=== PATIENT | female | born 1950 | race African-American/Black ===

== ENCOUNTER 2018-12-08 20:57 | Emergency (ER) | payer OTHER ==
[~2018-12-08] VITALS: Ht 175.3 cm; Wt 112.0 kg
[2018-12-08] MEDS ORDERED: PROAIR RESPICL90 MCG INH (21:05)
[2018-12-08 22:19] LABS: HEMATOCRIT 36.2 % (37.0-47.0); HEMOGLOBIN 11.4 gm/dL (12.0-15.0); MCH 24.6 pg (26.0-34.0); MCHC 31.4 g/dL (28.0-37.0); MCV 78.3 fL (80.0-100.0); PLATELET COUNT 327 thou/uL (150-400); RBC 4.62 mil/uL (4.20-5.00); RDW 19.7 % (10.5-14.5)
[2018-12-08 22:27] LABS: ANION GAP 9 mmol/L (7-16); BUN 10 mg/dL (7-18); CHLORIDE 106 mmol/L (98-107); CO2 27 mmol/L (21-32); CREATININE 1.1 mg/dL (0.6-1.0); GLUCOSE 143 mg/dL (74-106); POTASSIUM 4.5 mmol/L (3.5-5.1); SODIUM 142 mmol/L (136-145)
[2018-12-08] MEDS ORDERED: VENLAFAXINE HCL75 MG PO (22:34)
[2018-12-08] MEDS ORDERED: AMLODIPINE BESY10 MG PO (22:35)
[2018-12-08] MEDS ORDERED: ELIQUIS5 MG PO (22:35)
[2018-12-08] MEDS ORDERED: METFORMIN HCL500 MG PO (22:36)
[2018-12-08] MEDS ORDERED: JARDIANCE10 MG PO (22:36)
[2018-12-08] MEDS ORDERED: UNICOMPLEX M TA1 TA1 PO (22:36)
[2018-12-08] MEDS ORDERED: NORCO 5-325 TA1 EAC1 PO (22:36)
[2018-12-08 22:37] LABS: TROPONIN-I <0.06 ng/mL (<0.06)
[2018-12-08 22:55] LABS: ABSOLUTE NEUTROPHILS 2.2 thou/uL (1.4-8.2); ANISOCYTOSIS 2+
[2018-12-08] MEDS ORDERED: DOXYCYCLINE 10100 MG PO (23:14)
[2018-12-08] MEDS ORDERED: TESSALON PERLE100 MG PO (23:14)
[2018-12-08] MEDS ORDERED: PROMETHAZINE-C473 ML PO (23:14)
[2018-12-08 23:45] VITALS: BP 174/80
--- NOTE | 2018-12-09 07:53 | EKG ---
[address] [address] [email or web address] [address] ELECTROCARDIOGRAM REPORT Name: HOWARD BROWN [place] Room #: [facility] Tracee#: [id number] ������������������ Admission: 12/08/18 ������������������ Attend Phys: Discharge: 12/08/18 ������������������ Date of : 52 Report #: [id number] ����������������������������������������������������������������� [id number] THIS REPORT FOR: //name// [facility] ED Test Date: 2018-12-08 Test Time: 21:55:17 Pat Name: HOWARD BROWN Department: Room: Gender: F Zone Manager: RASHEEDA : 1950 Requested By: Olga Layton Order Number: [id number] MD: Jason Lindsey Measurements Intervals [place] Rate: 78 P: 55 VA: 153 QRS: 23 QRSD: 82 T: -9 QT: 375 QTc: 428 Interpretive Statements Sinus rhythm Abnormal R-wave progression, early transition Nonspecific T wave abnormality No previous ECG available for comparison Electronically Signed On 12-09-2018 7:53:44 CDT by Jason Lindsey [email or web address] ��������������������������������������������� <ELECTRONICALLY SIGNED> ���������������������������������������� By: Jason Lindsey MD, [facility] ��������������������������������������������� 12/09/18 [id number] Jason Lindsey MD, FACC /EPI
== END 2018-12-08 23:35 | disposition home or self-care (01) ==
LOC: ER 20:57
PROVIDERS: Nurse Practitioner Family
DX: J18.9 Pneumonia, unspecified organism (principal); I25.2 Old myocardial infarction; J45.909 Unspecified asthma, uncomplicated; I10 Essential (primary) hypertension; E11.9 Type 2 diabetes mellitus without complications; G89.29 Other chronic pain; Z90.49 Acquired absence of other specified parts of digestive tract; Z98.84 Bariatric surgery status; Z85.3 Personal history of malignant neoplasm of breast; Z96.653 Presence of artificial knee joint, bilateral; Z88.5 Allergy status to narcotic agent; Z88.6 Allergy status to analgesic agent; Z91.012 Allergy to eggs; Z79.899 Other long term (current) drug therapy

== ENCOUNTER 2018-12-16 17:14 | Emergency (ER) | payer OTHER ==
[~2018-12-16] VITALS: Ht 175.3 cm; Wt 112.0 kg
[~2018-12-16 17:14] MED LIST: AMLODIPINE BESY10 MG PO; DOXYCYCLINE 10100 MG PO; ELIQUIS5 MG PO; JARDIANCE10 MG PO; METFORMIN HCL500 MG PO; NORCO 5-325 TA1 EAC1 PO; PROAIR RESPICL90 MCG INH; PROMETHAZINE-C473 ML PO; TESSALON PERLE100 MG PO; UNICOMPLEX M TA1 TA1 PO; VENLAFAXINE HCL75 MG PO
[2018-12-16 18:28] LABS: ABSOLUTE NEUTROPHILS 5.7 thou/uL (1.4-8.2); BASOPHILS 0.5 % (0.0-2.0); HEMOGLOBIN 11.9 gm/dL (12.0-15.0); LYMPHOCYTES 14.2 % (24.0-44.0); MCH 24.5 pg (26.0-34.0); MCHC 31.3 g/dL (28.0-37.0); MCV 78.1 fL (80.0-100.0); MONOCYTES 4.9 % (1.0-8.0); PLATELET COUNT 340 thou/uL (150-400); POLYS 78.4 % (36.0-66.0); RBC 4.86 mil/uL (4.20-5.00); RDW 18.7 % (10.5-14.5); WBC 7.3 thou/uL (4.0-11.0)
[2018-12-16 18:35] LABS: ANION GAP 8 mmol/L (7-16); BUN 16 mg/dL (7-18); CALCIUM 9.5 mg/dL (8.5-10.1); CHLORIDE 104 mmol/L (98-107); CO2 30 mmol/L (21-32); CREATININE 1.2 mg/dL (0.6-1.0); GLUCOSE 136 mg/dL (74-106); POTASSIUM 4.3 mmol/L (3.5-5.1); SODIUM 142 mmol/L (136-145)
[2018-12-16 18:45] LABS: TROPONIN-I <0.06 ng/mL (<0.06)
[2018-12-16 19:32] VITALS: BP 138/81
--- NOTE | 2018-12-18 07:39 | EKG ---
[address] [address] [facility] [place] [address] ELECTROCARDIOGRAM REPORT Name: HOWARD BROWN [place] [id number] ������������������ Admission: 12/16/18 ������������������ Attend Phys: Discharge: 12/16/18 ������������������ Date of : 52 Report #: [id number] ����������������������������������������������������������������� [id number] THIS REPORT FOR: //name// [facility] ED Test Date: 2018-12-16 Test Time: 17:46:46 Pat Name: HOWARD BROWN Department: Room: Gender: F Business Process Associate: ARSLAN : 1950 Requested By: Rajesh Zhang Order Number: [id number] MD: Jason Lindsey Measurements Intervals [place] Rate: 84 P: 53 MT: 151 QRS: 20 QRSD: 96 T: -18 QT: 377 QTc: 446 Interpretive Statements Sinus rhythm Abnormal R-wave progression, early transition Nonspecific T abnormalities, diffuse leads Baseline wander in lead(s) V5,V6 Compared to ECG 12/08/2018 21:55:17 No significant changes Electronically Signed On 12-18-2018 7:38:59 CDT by Jason Lindsey [email or web address] ��������������������������������������������� <ELECTRONICALLY SIGNED> ���������������������������������������� By: Jason Lindsey MD, [facility] ��������������������������������������������� 12/18/18 0738 [id number] Jason Lindsey MD, [facility] /EPI
== END 2018-12-16 23:49 | disposition home or self-care (01) ==
LOC: ER 17:14
PROVIDERS: Emergency Medicine
DX: R07.89 Other chest pain (principal); J45.909 Unspecified asthma, uncomplicated; I10 Essential (primary) hypertension; E11.9 Type 2 diabetes mellitus without complications; Z90.49 Acquired absence of other specified parts of digestive tract; F32.9 Major depressive disorder, single episode, unspecified; F41.9 Anxiety disorder, unspecified; Z96.653 Presence of artificial knee joint, bilateral; Z88.6 Allergy status to analgesic agent; Z88.5 Allergy status to narcotic agent; Z91.012 Allergy to eggs